=== PATIENT | male | born 1990 | race American Indian/Alaskan Native ===

== ENCOUNTER 2022-01-28 09:25 | Emergency (ER) | payer SELFPAY ==
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
[2022-01-28] MEDS ORDERED: traMADol 50 MG TAB PO ONE (11:19)
[2022-01-28] MEDS ORDERED: IBUPROFEN 800 MG TAB PO ONE (11:19)
[2022-01-28] MEDS ORDERED: CYCLOBENZAPRINE 10 MG TAB PO ONE (11:19)
[2022-01-28 11:58] VITALS: BP 129/73
== END 2022-01-28 11:56 | disposition home or self-care (01) ==
LOC: ED 09:25
DX: S39.012A Strain of muscle, fascia and tendon of lower back, initial encounter (principal); M79.662 Pain in left lower leg; X58.XXXA Exposure to other specified factors, initial encounter; Y93.89 Activity, other specified; Y92.89 Other specified places as the place of occurrence of the external cause; Y99.8 Other external cause status
CPT/HCPCS: 99283